=== PATIENT | male | born 1965 | race American Indian/Alaskan Native ===

== ENCOUNTER 2021-04-08 06:15 | Day surgery (SDC) | payer OTHER ==
[2021-04-08] MEDS ORDERED: ASPIRIN EC 325 MG TAB PO NR (06:52)
[2021-04-08] MEDS ORDERED: SODIUM CHLORIDE 0.9% 500 ML 500 ML IV SCH (07:00)
[2021-04-08 07:38] LABS: Basophils % (Auto) 0.4 % (0.0-1.8); Eosinophils % (Auto) 0.1 % (0.0-4.3); Hematocrit 44.7 % (35.5-45.6); Hemoglobin 14.4 gm/dl (11.8-15.2); Lymphocytes # (Auto) 0.7 K/mm3 (1.2-5.4); Lymphocytes % (Auto) 7.4 % (13.4-35.0); Mean Corpuscular HGB Conc 32 % (32-34); Mean Corpuscular Volume 86 fl (84-94); Monocytes # (Auto) 0.2 K/mm3 (0.0-0.8); Monocytes % (Auto) 2.3 % (0.0-7.3); Red Blood Count 5.17 M/mm3 (3.65-5.03); Red Cell Distribution Width 14.5 % (13.2-15.2)
[2021-04-08 07:47] LABS: BUN/Creatinine Ratio 14; Blood Urea Nitrogen 11 mg/dL (9-20); Calcium 9.1 mg/dL (8.4-10.2); Hemolysis Index 15
[2021-04-08 08:00] LABS: INR 0.94 (0.87-1.13); Partial Thromboplastin Time 26.5 Sec. (24.2-36.6)
[2021-04-08] MEDS ORDERED: HEPARIN 10,000 UNITS/10 ML VIAL ONE (08:14)
[2021-04-08] MEDS ORDERED: LIDOCAINE (2%) 20 MG/1 ML VIAL 20 ML MDV INFILTRATI ONE ×2 (08:14→09:07)
[2021-04-08] MEDS ORDERED: VERAPAMIL 5 MG/2 ML INJ ONE (08:14)
[2021-04-08] MEDS ORDERED: MIDAZOLAM 2 MG/2 ML INJ ONE (08:14)
[2021-04-08] MEDS ORDERED: fentaNYL 100 MCG/2 ML INJ ONE (08:14)
[2021-04-08] MEDS ORDERED: HEPARIN/NS 5000 UNIT/500ML 1,000 ML IR ONE (08:14)
[2021-04-08] MEDS ORDERED: NITROGLYCERIN SYRINGE 3 ML ONE (08:15)
[2021-04-08 08:35] LABS: Platelet Count 177 K/mm3 (140-440)
[2021-04-08] MEDS ORDERED: diphenhydrAMINE 50 MG/ML VIAL ONE (08:49)
[2021-04-08] MEDS ORDERED: MIDAZOLAM 2 MG/2 ML INJ IV ONE ×2 (09:00→09:07)
[2021-04-08] MEDS ORDERED: diphenhydrAMINE 50 MG/ML VIAL IV ONE (09:00)
[2021-04-08] MEDS ORDERED: fentaNYL 100 MCG/2 ML INJ IV ONE ×2 (09:01→09:07)
[2021-04-08] MEDS ORDERED: HEPARIN 10,000 UNITS/10 ML VIAL ART-SHEATH ONE (09:08)
[2021-04-08] MEDS ORDERED: VERAPAMIL 5 MG/2 ML INJ ART-SHEATH ONE (09:08)
[2021-04-08] MEDS ORDERED: NITROGLYCERIN 600 MCG/3 ML SYRINGE ART-SHEATH ONE (09:08)
[2021-04-08] MEDS ORDERED: hydrALAZINE 20 MG/1 ML INJ ONE (09:25)
[2021-04-08] MEDS ORDERED: hydrALAZINE 20 MG/1 ML INJ IV ONE (09:26)
--- NOTE | 2021-04-08 09:47 | Cardiac Catherization Report ---
DATE OF PROCEDURE: 04/08/2021 CARDIAC CATHETERIZATION REFERRING PHYSICIAN: Dr. Ambrosio. INDICATIONS FOR PROCEDURE: The patient is an exceedingly pleasant 55-year-old gentleman with high blood pressure, hypertensive heart disease, hyperlipidemia, presents due to recurrent chest pain and PVCs. He is referred for left heart catheterization. Risks, benefits, potential alternatives explained at length prior to obtaining informed consent. PROCEDURE IN DETAIL: The patient was brought to director of cath lab in a postabsorptive state. It should be noted that he has a questionable dye allergy. He has been appropriately premedicated. Prepped and draped in sterile fashion. A 2 mL of 2% lidocaine used to anesthetize the right wrist. A standard 6-[place] hydrophilic sheath used to cannulate the right radial artery via modified Seldinger technique. All exchanges performed to exchange a J-tip guidewire. JL3.5 catheter was used to engage the left main. No ventricularization. Cineangiography performed in all projections. JR4 catheter used to cross the aortic valve under fluoroscopic guidance. Left ventriculography performed in 30-degree [place] and 30-degree [place] projections via hand injections, catheter flushed. Manual pullback performed with continuous pressure monitoring. Catheter was used to engage the right coronary. No dampening or ventricularization. Cineangiography performed in all projections. Next, due to recurrent chest pain, hypertension, we chose to do a root aortography. Pigtail catheter in the [place] projection with power injector. Next, catheter was removed from the body of wire, sheath removed. Manual pressure used to achieve hemostasis. I directly supervised the administration of moderate sedation with fentanyl and Versed from 9:00 a.m. to 9:28 a.m. There were no immediate complications. DATA: Aortic pressure is 170/100, LV pressure is 170. LVEDP of 20 mmHg. Left ventriculography reveals normal systolic performance with estimated ejection fraction of 50-55%. No evidence of aortic stenosis. The patient remained in normal sinus rhythm with occasional unifocal PVCs throughout. This is a strongly left dominant system. The right coronary is a small nondominant. Left main is large without significant disease, bifurcates into left anterior descending, left circumflex. Left circumflex is moderate sized vessel, courses AV groove, gives off a left PDA, no significant disease. LAD is a moderate sized vessel, courses anterior intraventricular groove, wraps around the apex. No significant disease noted in the LAD or diagonal branches. Root aortography reveals normal contour, normal great vessel anatomy. No evidence of aortic insufficiency. No dissection or penetrating aortic ulcer. CONCLUSIONS: 1. No angiographic evidence of significant epicardial coronary artery disease in this left dominant system. 2. Normal left ventricular systolic performance, estimated ejection fraction of 55-60%. No evidence of aortic stenosis. 3. High normal LVEDP. 4. Uncontrolled hypertension. 5. Root aortography without evidence of dissection, penetrating aortic ulcer or aortic insufficiency. PLAN: The patient states his blood pressure has been under much better control at home on medications. I believe he has hypertensive heart disease. Weight loss, diet and exercise discussed. Standard radial care. Results of procedure explained to the patient and his . All questions were addressed. He will follow up with Dr. Ambrosio in the office. TID: [id number] RECEIPT: [id number] WILLIAMS/SHERI
--- NOTE | 2021-04-08 10:44 | Electrocardiograph Report ---
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
--- NOTE | 2021-04-08 11:34 | Short Stay Summary ---
Short Stay Documentation Date of service: 04/08/21 - History H&P: obtained from office - Allergies and Medications Current Medications: Allergies Tetracyclines Allergy (Verified 04/08/21 06:48) Hives Penicillins Adverse Reaction (Verified 04/08/21 06:48) Anaphylaxis shellfish derived Adverse Reaction (Verified 04/08/21 06:48) Anaphylaxis Home Medications Medication Instructions Recorded Confirmed Last Taken Type Albuterol Sulfate [Proair 90 mcg IH PRN PRN 04/08/21 04/08/21 04/01/21 History Respiclick] Losartan Potassium 50 mg PO DAILY 04/08/21 04/08/21 04/08/21 History Metoprolol [Lopressor TAB] 50 mg PO BID 04/08/21 04/08/21 04/08/21 History Active Medications Sodium Chloride (Nacl 0.9% 500 Ml) 500 mls @ 50 mls/hr IV DIRECT MIKE Stop: 04/08/21 16:59 - Brief post op/procedure progress note Date of procedure: 04/08/21 Pre-op diagnosis: chest pain with hypertensive heart disease Post-op diagnosis: same Anesthesia: local Estimated blood loss: minimal - Disposition Condition at discharge: Good Disposition: 01 HOME / SELF CARE / HOMELESS Short Stay Discharge Plan Activity: advance as tolerated Diet: low fat, low cholesterol, low salt Wound: keep clean and dry, per your surgeon's advice Follow up with: SAVANA RESENDEZ MD [Primary Care Provider] - 7 Days GILMA AMBROSIO MD [Staff Physician] - 04/22/21 10:00 am (Patient has a follow-up appointment with Dr. Ambrosio, [facility], on 04/22/2021 at 10 AM. Phone [phone] )
[2021-04-08 12:35] VITALS: BP 142/91
== END 2021-04-08 13:20 | disposition home or self-care (01) ==
LOC: CATHLABREC 06:15
PROVIDERS: ATTEND Internal Medicine
DX: R07.89 Other chest pain (principal); I49.3 Ventricular premature depolarization; I10 Essential (primary) hypertension; E66.09 Other obesity due to excess calories; I47.2 Ventricular tachycardia; I25.10 Atherosclerotic heart disease of native coronary artery without angina pectoris; J45.909 Unspecified asthma, uncomplicated; M19.90 Unspecified osteoarthritis, unspecified site; F41.9 Anxiety disorder, unspecified; F32.9 Major depressive disorder, single episode, unspecified; Z88.0 Allergy status to penicillin; Z88.1 Allergy status to other antibiotic agents; Z91.013 Allergy to seafood; Z79.899 Other long term (current) drug therapy; Z98.890 Other specified postprocedural states
CPT/HCPCS: 36415; 80048; 85025; 85610; 85730; 93005; 93458; 93567; 99156; 99157; C1894; J0360; J1200; J1644; J1815; J2250; J3010; J3490; J7040; Q9967